=== PATIENT | female | born 1955 | race Caucasian/White ===

== ENCOUNTER 2020-12-23 11:30 | Emergency (ER) | payer BC ==
[2020-12-23 11:53] VITALS: BP 170/79; PULSE 95; TEMP 99; BMI 29.0
[2020-12-23] MEDS ORDERED: KETOROLAC TROMETHAMINE 30 MG/1 ML VIAL IM ONE (14:09)
[2020-12-23] MEDS ORDERED: KETOROLAC TROMETHAMINE 30 MG/1 ML VIAL ONE (14:13)
== END 2020-12-23 14:53 | disposition home or self-care (01) ==
LOC: JERFT 11:30
PROC: 3E0233Z Introduction of Anti-inflammatory into Muscle, Percutaneous Approach (ICD-10-PCS; principal; 2020-12-23)
DX: M89.4 Other hypertrophic osteoarthropathy (principal); Y93.01 Activity, walking, marching and hiking
CPT/HCPCS: 73564-TC-LT-FY; 93971-TC; 99284-25

== ENCOUNTER 2022-04-04 09:21 | Emergency (ER) | payer BC, OTHER ==
[2022-04-04 09:29] VITALS: BMI 29.8
[2022-04-04] MEDS ORDERED: ONDANSETRON 4 MG/2 ML VIAL IVPUSH ONE (11:08)
[2022-04-04] MEDS ORDERED: SODIUM CHLORIDE 0.9% 500 ML INFUS.BAG IV ONE (11:08)
[2022-04-04] MEDS ORDERED: FAMOTIDINE 20 MG/50 ML IVPB 20 MG/50 ML MG IVPB ONE ×2 (11:08→11:49)
[2022-04-04] MEDS ORDERED: ONDANSETRON 4 MG/2 ML VIAL ONE (11:49)
[2022-04-04 12:12] LABS: BASO % 0.3 % (0-2.0); EOS % 0.5 % (0-4.5); HEMATOCRIT 42.5 % (32.4-45.2); HEMOGLOBIN 14.6 GM/dL (10.7-15.3); LYMPH % 22.7 % (8-40); MCH 28.3 pg (25.7-33.7); MCHC 34.5 g/dl (32.0-36.0); MEAN CELL VOLUME 82.1 fl (80-96); MONO % 12.7 % (3.8-10.2); NEUT % 63.8 % (42.8-82.8); PLATELET COUNT 258 10^3/uL (134-434); RBC 5.18 M/mm3 (3.60-5.2); RDW 13.2 % (11.6-15.6); WHITE BLOOD COUNT 6.4 K/mm3 (4.0-10.0)
[2022-04-04 12:35] LABS: BLOOD UREA NITROGEN 23.2 mg/dL (7-18)
[2022-04-04 12:36] LABS: ALBUMIN 3.7 g/dl (3.4-5.0); CALCIUM 9.2 mg/dL (8.5-10.1); MAGNESIUM 1.8 mg/dL (1.8-2.4)
[2022-04-04 12:39] LABS: CREATININE 1.4 mg/dL (0.55-1.3); PHOSPHOROUS 3.2 mg/dL (2.5-4.9)
[2022-04-04 12:40] LABS: BILIRUBIN,TOTAL 1.5 mg/dL (0.2-1)
[2022-04-04 12:41] LABS: TOT PROT 6.7 g/dl (6.4-8.2)
[2022-04-04 13:54] LABS: PH,URINE 5.5 (5.0-8.0); URINE APPEARANCE CLEAR; URINE BILIRUBIN NEGATIVE (NEGATIVE); URINE COLOR YELLOW; URINE GLUCOSE (UA) 3+ (NEGATIVE); URINE KETONE NEGATIVE (NEGATIVE); URINE LEUK ESTERASE NEGATIVE (NEGATIVE); URINE NITRITE NEGATIVE (NEGATIVE); URINE PROTEIN NEGATIVE (NEGATIVE); URINE UROBILINOGEN 0.2 mg/dL (0.2-1.0)
[2022-04-04 14:47] VITALS: BP 102/59; PULSE 63; RESP 20; TEMP 98.1
== END 2022-04-04 14:47 | disposition home or self-care (01) ==
LOC: JER 09:21
PROC: 3E033GC Introduction of Other Therapeutic Substance into Peripheral Vein, Percutaneous Approach (ICD-10-PCS; principal; 2022-04-04)
DX: R11.10 Vomiting, unspecified (principal); R19.7 Diarrhea, unspecified; E86.0 Dehydration
CPT/HCPCS: 0241U-QW; 36415; 80053; 81003; 82962; 83690; 83735; 84100; 84484; 85025; 87086; 93005; 93010; 99284-25